=== PATIENT | male | born 2000 | race Caucasian/White ===

== ENCOUNTER 2022-01-17 06:35 | Emergency (ER) | payer OTHER ==
[2022-01-17 07:26] LABS: COVID AG,FIA SOURCE NASOPHARYNGEAL
[2022-01-17] MEDS ORDERED: GuaiFENesin/D-METHORPHAN [SUGAR-FREE] 200-20MG/10 ML SYRUP UDCUP PO ONE (08:15)
[2022-01-17 08:17] LABS: INFLUENZA TYPE A NEGATIVE FOR TYPE A (NEGATIVE); INFLUENZA TYPE B NEGATIVE FOR TYPE B (NEGATIVE)
[2022-01-17] MEDS: ACETAMINOPHEN 500 MG TABLET PO ONE ×2 (08:38→08:43)
[2022-01-17] MEDS ORDERED: IBUP-1554 PO (08:47)
[2022-01-17] MEDS ORDERED: GUAIFDM PO (08:47)
[2022-01-17] MEDS ORDERED: ACET-66 PO (08:47)
== END 2022-01-17 09:17 | disposition home or self-care (01) ==
LOC: EMS 06:35
DX: J06.9 Acute upper respiratory infection, unspecified (principal); R07.89 Other chest pain; H92.01 Otalgia, right ear; Z20.822 Contact with and (suspected) exposure to COVID-19
CPT/HCPCS: 71045; 87804; 99284